=== PATIENT | male | born 1980 | race Caucasian/White ===

== ENCOUNTER 2017-12-06 16:01 | Emergency (ER) | END 2017-12-06 18:37 | disposition home or self-care (01) ==

== ENCOUNTER 2017-12-16 05:43 | Emergency (ER) | END 2017-12-16 06:46 | disposition home or self-care (01) ==

== ENCOUNTER → 2018-11-01 | Emergency (ER) | payer OTHER ==
[~2018-11-01] VITALS: Ht 175.3 cm; Wt 113.2 kg
[~2018-11-01] MED LIST: BACTDS PO; BENZ-6 PO; CEPH-443 PO; D-ME118S6 PO; D-ME473S2 PO; IBUP-1542 PO; OFLO5DRO46 RIGHT EYE; POLY10DR19 LEFT EYE; SULF1TAB31 PO; TETRACAINE 0.5% 4 ML OPH RIGHT EYE ONE; VIGA LEFT EYE
[2018-11-01 11:47] VITALS: BP 135/93; PULSE 82; RESP 18; Ht 175.3 cm; Wt 113.2 kg
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
== END | disposition home or self-care (01) ==
LOC: FTE 11:28
DX: T15.01XA Foreign body in cornea, right eye, initial encounter (principal); F17.210 Nicotine dependence, cigarettes, uncomplicated; X58.XXXA Exposure to other specified factors, initial encounter; Y92.9 Unspecified place or not applicable
CPT/HCPCS: 65220; Z7502; Z7610